=== PATIENT | female | born 1975 | race Caucasian/White ===

== ENCOUNTER 2018-08-20 05:30 | Inpatient (IN) | payer MEDICAID ==
[~2018-08-20] VITALS: Ht 171.4 cm; Wt 124.3 kg
[2018-08-20] VITALS (66 sets, daily range): BP systolic 90–185; BP diastolic 33–114
[~2018-08-20 05:30] MED LIST: ABIL10 PO; AMPH30TA3 PO; ASPI-964 PO; ATOR20TA PO; DULO60CA44 PO; GEMF600T4 PO; HYDR-4009 PO; LORA1TAB PO; METF-414 PO; MORP30TA54 PO
[2018-08-20] MEDS ORDERED: GELATIN SPONGE,ABSORBABLE 12-7MM SPONGE ONE (06:27)
[2018-08-20] MEDS ORDERED: BACITRACIN 15GM TUBE TOP ONE (06:27)
[2018-08-20 06:28] LABS: CLARITY URINE CLOUDY (CLEAR); COLOR URINE DARK YELLOW (YELLOW); KETONES URINE TRACE (NEGATIVE); LEUKOCYTE ESTERASE URINE NEGATIVE (NEGATIVE); NITRITE URINE NEGATIVE (NEGATIVE); OCCULT BLOOD URINE NEGATIVE (NEGATIVE); PH URINE 5.5 (4.5-8.0); PROTEIN URINE 1+ (NEGATIVE); SPECIFIC GRAVITY URINE 1.035 (1.005-1.030)
[2018-08-20] MEDS ORDERED: NORMAL SALINE 0.9% 10 ML SYR ONE (06:28)
[2018-08-20] MEDS ORDERED: LIDOCAINE HCL/EPINEPHRINE 1%-EPI 1:100,000 20 ML VIAL ONE (06:28)
[2018-08-20] MEDS ORDERED: THROMBIN (BOVINE) 5000 UNITS/VIAL TOP ONE ×2 (06:28→06:43)
[2018-08-20] MEDS ORDERED: BACITRACIN 50,000 UNITS/VIAL ONE (06:29)
[2018-08-20] MEDS ORDERED: INSULIN REGULAR (HUMULIN R) UD 100 UNITS/ML SYR SUBCUT NR (06:30)
[2018-08-20] MEDS ORDERED: HYDROMORPHONE HCL/PF 2MG/ML (OR) ONE (06:42)
[2018-08-20] MEDS ORDERED: FENTANYL CITRATE/PF 50MCG/ML 5ML VIAL ONE (06:42)
[2018-08-20] MEDS ORDERED: MIDAZOLAM HCL 2 MG/2 ML VIAL ONE (06:42)
[2018-08-20] MEDS ORDERED: PROPOFOL 200MG/20ML VIAL IV ONE (06:42)
[2018-08-20] MEDS ORDERED: ROCURONIUM BROMIDE 10MG/ML VIAL 5ML IV ONE ×2 (06:42→07:52)
[2018-08-20] MEDS ORDERED: PHENYLEPHRINE HCL 10 MG/ML 1ML (IV VIAL) IV ONE (06:48)
[2018-08-20 07:10] LABS: UCG SCREEN NEGATIVE
[2018-08-20] MEDS ORDERED: LIDOCAINE HCL 1% 20ML VIAL (Pyxis) INJ ONE (07:20)
[2018-08-20] MEDS ORDERED: HYDROCODONE/APAP 7.5/325MG 1 TAB TABLET PO PRN (07:30)
[2018-08-20] MEDS ORDERED: INSULIN REGULAR (HUMULIN R) 300UNITS/3ML ONE (07:31)
[2018-08-20] MEDS ORDERED: DEXTROSE 50% WATER 50ML SYRINGE IV PRN (07:45)
[2018-08-20] MEDS ORDERED: ESMOLOL HCL 10MG/ML 10ML VIAL IV ONE (07:49)
[2018-08-20] MEDS ORDERED: INSU100I24 SQ (08:03)
[2018-08-20] MEDS: SODIUM CHLORIDE 0.9% 1,000 ML IV SCH ×2 (08:06→09:42)
[2018-08-20] MEDS ORDERED: METOCLOPRAMIDE HCL 10MG/2ML VIAL ONE (08:27)
[2018-08-20] MEDS ORDERED: ONDANSETRON HCL 4MG/2ML INJ ONE (08:27)
[2018-08-20] MEDS ORDERED: GLYCOPYRROLATE 0.2 MG/ML 2ML VIAL ONE (08:46)
[2018-08-20] MEDS: NICARDIPINE 100 MG in SODIUM CHLORIDE 0.9% 60 ML IV PRN ×2 (09:43→19:47)
[2018-08-20] MEDS ORDERED: DIPHENHYDRAMINE INJ IV PRN (10:00)
[2018-08-20] MEDS ORDERED: NALOXONE INJ IV PRN (10:00)
[2018-08-20] MEDS ORDERED: ONDANSETRON INJ IV PRN (10:00)
[2018-08-20] MEDS: MORPHINE SULFATE 4 MG/ML CPJ (NOT FOR IM USE) IV PRN ×3 (10:01→21:27)
[2018-08-20] MEDS ORDERED: MORPHINE SULFATE 4 MG/ML CPJ (NOT FOR IM USE) IV NR (10:30)
[2018-08-20] MEDS: HYDROMORPHONE PCA 10MG/50ML IV PRN (10:34)
[2018-08-20] MEDS ORDERED: IPRATROPIUM/ALBUTEROL 0.5-3(2.5)MG/3ML NEB INH PRN (12:00)
[2018-08-20] MEDS: BLOOD SUGAR DIAGNOSTIC STRIP TEST SCH ×3 (12:15→21:14)
[2018-08-20 12:28] LABS: EOSINOPHILS % 0.3 % (0.0-5.0); HEMATOCRIT. 42.7 % (36.0-48.0); HEMOGLOBIN. 13.7 g/dL (12.0-16.0); MEAN CORPUSCULAR HEMOGLOBIN 27.6 pg (28.0-32.0); MEAN CORPUSCULAR VOLUME 86.1 fL (81.0-99.0); MEAN PLATELET VOLUME 9.3 fl (7.4-10.4); MONOCYTES % 2.4 % (2.0-8.0); NEUTROPHILS % 85.3 % (40.0-76.0); PLATELET 307 x1000/uL (130-400); RED BLOOD CELL COUNT 4.96 mill/uL (4.2-5.4); RED CELL DISTRIBUTION WIDTH 13.9 % (11.6-14.6)
[2018-08-20] MEDS: DEXAMETHASONE 4MG/ML 1ML VIAL IV SCH ×3 (12:31→23:28)
[2018-08-20] MEDS: INSULIN LISPRO 100 UNITS/ML SUBCUT SCH ×3 (12:32→21:19)
[2018-08-20 13:12] LABS: CHLORIDE 102 mEq/L (98-107)
[2018-08-20 13:18] LABS: PHOSPHORUS 3.8 mg/dL (2.5-4.9)
[2018-08-20 13:19] LABS: LDL CHOLESTEROL 197 mg/dL (5-100)
[2018-08-20 13:20] LABS: HDL CHOLESTEROL 29 mg/dL (40-59)
[2018-08-20] MEDS ORDERED: CEFAZOLIN SODIUM 1000MG/VIAL IV SCH (14:00)
[2018-08-20] MEDS: CEFAZOLIN 1000MG PREMIX 50 ML IV SCH ×2 (16:31→23:28)
[2018-08-20] MEDS: ARIPIPRAZOLE 10MG TABLET PO SCH (20:11)
[2018-08-20] MEDS: DULOXETINE HCL 30MG DR CAPSULE PO SCH (20:12)
[2018-08-20] MEDS: ATORVASTATIN CALCIUM 20MG TABLET PO SCH (21:20)
[2018-08-20] MEDS: INSULIN GLARGINE UD 100 UNITS/ML SYR SUBCUT SCH (21:20)
[2018-08-21] VITALS (94 sets, daily range): BP systolic 107–166; BP diastolic 32–109
[2018-08-21] MEDS: MORPHINE SULFATE 4 MG/ML CPJ (NOT FOR IM USE) IV PRN ×2 (01:34→05:40)
[2018-08-21] MEDS: SODIUM CHLORIDE 0.9% 1,000 ML IV SCH ×2 (03:54→17:03)
[2018-08-21] MEDS: BLOOD SUGAR DIAGNOSTIC STRIP TEST SCH ×4 (05:38→20:58)
[2018-08-21] MEDS: DEXAMETHASONE 4MG/ML 1ML VIAL IV SCH ×2 (05:39→12:36)
[2018-08-21 05:48] LABS: BASOPHILS % 0.4 % (0.0-2.0); HEMATOCRIT. 41.4 % (36.0-48.0); HEMOGLOBIN. 13.8 g/dL (12.0-16.0); LYMPHOCYTES % 8.2 % (20.0-50.0); MEAN CORPUSCULAR HEMOGLOBIN 28.6 pg (28.0-32.0); MEAN CORPUSCULAR VOLUME 86.1 fL (81.0-99.0); MEAN PLATELET VOLUME 9.5 fl (7.4-10.4); MONOCYTES % 2.3 % (2.0-8.0); NEUTROPHILS % 89.1 % (40.0-76.0); PLATELET 291 x1000/uL (130-400); RED BLOOD CELL COUNT 4.82 mill/uL (4.2-5.4); RED CELL DISTRIBUTION WIDTH 13.9 % (11.6-14.6)
[2018-08-21 05:53] LABS: CHLORIDE 101 mEq/L (98-107)
[2018-08-21] MEDS: CEFAZOLIN 1000MG PREMIX 50 ML IV SCH (06:11)
[2018-08-21] MEDS: INSULIN LISPRO 100 UNITS/ML SUBCUT SCH ×4 (06:11→20:58)
[2018-08-21] MEDS: NICARDIPINE 100 MG in SODIUM CHLORIDE 0.9% 60 ML IV PRN ×2 (06:26→17:03)
[2018-08-21] MEDS: INSULIN GLARGINE UD 100 UNITS/ML SYR SUBCUT SCH ×2 (11:15→22:13)
[2018-08-21] MEDS: AMLODIPINE 5MG TABLET PO SCH (12:51)
[2018-08-21] MEDS: HYDROMORPHONE PCA 10MG/50ML IV PRN (20:03)
[2018-08-21] MEDS: ARIPIPRAZOLE 10MG TABLET PO SCH (20:57)
[2018-08-21] MEDS: DULOXETINE HCL 30MG DR CAPSULE PO SCH (20:57)
[2018-08-21] MEDS: ATORVASTATIN CALCIUM 20MG TABLET PO SCH (20:57)
[2018-08-22] VITALS (58 sets, daily range): BP systolic 115–163; BP diastolic 53–104
[2018-08-22] MEDS: INSULIN LISPRO 100 UNITS/ML SUBCUT SCH ×4 (06:41→20:59)
[2018-08-22] MEDS: BLOOD SUGAR DIAGNOSTIC STRIP TEST SCH ×4 (06:42→21:02)
[2018-08-22 06:46] LABS: CHLORIDE 97 mEq/L (98-107)
[2018-08-22 06:59] LABS: HEMATOCRIT. 40.3 % (36.0-48.0); HEMOGLOBIN. 13.6 g/dL (12.0-16.0); MEAN CORPUSCULAR HEMOGLOBIN 28.6 pg (28.0-32.0); MEAN PLATELET VOLUME 9.5 fl (7.4-10.4); PLATELET 314 x1000/uL (130-400); RED BLOOD CELL COUNT 4.75 mill/uL (4.2-5.4); RED CELL DISTRIBUTION WIDTH 13.8 % (11.6-14.6)
[2018-08-22] MEDS: AMLODIPINE 5MG TABLET PO SCH (09:20)
[2018-08-22 09:40] LABS: PLATELET ESTIMATE NORMAL
[2018-08-22] MEDS: CEFTRIAXONE 1,000 MG in DEXTROSE 5% WATER 50 ML IV SCH (10:00)
[2018-08-22] MEDS: INSULIN GLARGINE UD 100 UNITS/ML SYR SUBCUT SCH ×2 (10:16→21:02)
[2018-08-22] MEDS ORDERED: CLONIDINE 0.1MG TABLET PO PRN (11:15)
[2018-08-22] MEDS: MORPHINE SULFATE 4 MG/ML CPJ (NOT FOR IM USE) IV PRN (18:17)
[2018-08-22] MEDS: ARIPIPRAZOLE 10MG TABLET PO SCH (20:55)
[2018-08-22] MEDS: ATORVASTATIN CALCIUM 20MG TABLET PO SCH (20:55)
[2018-08-22] MEDS: DULOXETINE HCL 30MG DR CAPSULE PO SCH (20:55)
[2018-08-22] MEDS ORDERED: CARVEDILOL 3.125 MG TABLET PO SCH (21:00)
[2018-08-23] VITALS: BP 153/91
[2018-08-23] MEDS: MORPHINE SULFATE 4 MG/ML CPJ (NOT FOR IM USE) IV PRN (03:52)
[2018-08-23 04:00] VITALS: BP 153/93
[2018-08-23] MEDS: BLOOD SUGAR DIAGNOSTIC STRIP TEST SCH ×4 (06:29→21:20)
[2018-08-23] MEDS: INSULIN LISPRO 100 UNITS/ML SUBCUT SCH ×4 (06:29→21:21)
[2018-08-23 07:58] LABS: BASOPHILS % 0.3 % (0.0-2.0); HEMATOCRIT. 41.1 % (36.0-48.0); HEMOGLOBIN. 13.6 g/dL (12.0-16.0); LYMPHOCYTES % 16.6 % (20.0-50.0); MEAN CORPUSCULAR HEMOGLOBIN 27.9 pg (28.0-32.0); MEAN CORPUSCULAR VOLUME 84.1 fL (81.0-99.0); MEAN PLATELET VOLUME 8.8 fl (7.4-10.4); MONOCYTES % 6.5 % (2.0-8.0); NEUTROPHILS % 76.6 % (40.0-76.0); PLATELET 295 x1000/uL (130-400); RED BLOOD CELL COUNT 4.89 mill/uL (4.2-5.4); RED CELL DISTRIBUTION WIDTH 13.5 % (11.6-14.6)
[2018-08-23 08:00] VITALS: BP 166/117
[2018-08-23 08:14] LABS: CHLORIDE 96 mEq/L (98-107)
[2018-08-23] MEDS: AMLODIPINE 10MG TABLET PO SCH (08:58)
[2018-08-23] MEDS: CARVEDILOL 6.25 MG TABLET PO SCH ×2 (08:58→21:20)
[2018-08-23] MEDS: LORAZEPAM 1MG TABLET PO SCH (09:52)
[2018-08-23] MEDS: INSULIN GLARGINE UD 100 UNITS/ML SYR SUBCUT SCH ×2 (09:54→21:22)
[2018-08-23] MEDS: CEFTRIAXONE 1,000 MG in DEXTROSE 5% WATER 50 ML IV SCH (11:31)
[2018-08-23 12:00] VITALS: BP 145/75
[2018-08-23 16:00] VITALS: BP 112/71
[2018-08-23 20:44] VITALS: BP 117/51
[2018-08-23] MEDS: DULOXETINE HCL 30MG DR CAPSULE PO SCH (21:19)
[2018-08-23] MEDS: ARIPIPRAZOLE 10MG TABLET PO SCH (21:20)
[2018-08-23] MEDS: ATORVASTATIN CALCIUM 20MG TABLET PO SCH (21:20)
[2018-08-24 00:53] VITALS: BP 145/72
[2018-08-24 04:00] VITALS: BP 176/76
[2018-08-24] MEDS: BLOOD SUGAR DIAGNOSTIC STRIP TEST SCH ×2 (06:30→11:57)
[2018-08-24] MEDS: INSULIN LISPRO 100 UNITS/ML SUBCUT SCH ×2 (06:42→12:58)
[2018-08-24 07:03] LABS: CHLORIDE 99 mEq/L (98-107)
[2018-08-24 07:17] LABS: BASOPHILS % 0.3 % (0.0-2.0); EOSINOPHILS % 0.5 % (0.0-5.0); HEMATOCRIT. 41.4 % (36.0-48.0); HEMOGLOBIN. 13.6 g/dL (12.0-16.0); LYMPHOCYTES % 34.1 % (20.0-50.0); MEAN CORPUSCULAR HEMOGLOBIN 28.2 pg (28.0-32.0); MEAN CORPUSCULAR VOLUME 85.5 fL (81.0-99.0); MEAN PLATELET VOLUME 8.9 fl (7.4-10.4); MONOCYTES % 7.4 % (2.0-8.0); NEUTROPHILS % 57.7 % (40.0-76.0); PLATELET 293 x1000/uL (130-400); RED BLOOD CELL COUNT 4.84 mill/uL (4.2-5.4); RED CELL DISTRIBUTION WIDTH 13.7 % (11.6-14.6)
[2018-08-24 08:00] VITALS: BP 138/79
[2018-08-24] MEDS: CEFTRIAXONE 1,000 MG in DEXTROSE 5% WATER 50 ML IV SCH (09:08)
[2018-08-24] MEDS: LORAZEPAM 1MG TABLET PO SCH (09:08)
[2018-08-24] MEDS: AMLODIPINE 10MG TABLET PO SCH (09:09)
[2018-08-24] MEDS: CARVEDILOL 6.25 MG TABLET PO SCH (09:09)
[2018-08-24] MEDS: INSULIN GLARGINE UD 100 UNITS/ML SYR SUBCUT SCH (09:10)
[2018-08-24 12:00] VITALS: BP 103/42
[2018-08-24 12:18] VITALS: BP 103/42
[2018-08-24] MEDS ORDERED: COR6 PO (12:38)
[2018-08-24] MEDS ORDERED: AMLO10TA80 PO (12:38)
== END 2018-08-24 13:10 | disposition home or self-care (01) | DRG 710 ==
LOC: OR 05:30 → MICUNO 05:31 → 5WST 08-22 17:10
PROVIDERS: ADMIT Internal Medicine; ATTEND Internal Medicine
PROC: 0RG20A0 Fusion of 2 or more Cervical Vertebral Joints with Interbody Fusion Device, Anterior Approach, Anterior Column, Open Approach (ICD-10-PCS; principal; 2018-08-23)
PROC: 0RB30ZZ Excision of Cervical Vertebral Disc, Open Approach (ICD-10-PCS; 2018-08-23)
PROC: 4A11X4G Monitoring of Peripheral Nervous Electrical Activity, Intraoperative, External Approach (ICD-10-PCS; 2018-08-23)
DX: A41.9 Sepsis, unspecified organism (principal); G82.50 Quadriplegia, unspecified; M47.12 Other spondylosis with myelopathy, cervical region; G95.29 Other cord compression; E11.65 Type 2 diabetes mellitus with hyperglycemia; M48.02 Spinal stenosis, cervical region; Z68.41 Body mass index [BMI] 40.0-44.9, adult; I10 Essential (primary) hypertension; I16.0 Hypertensive urgency; N39.0 Urinary tract infection, site not specified; E66.9 Obesity, unspecified; M47.22 Other spondylosis with radiculopathy, cervical region; Z60.2 Problems related to living alone; E78.5 Hyperlipidemia, unspecified; K21.9 Gastro-esophageal reflux disease without esophagitis; Z79.4 Long term (current) use of insulin; Z98.51 Tubal ligation status; Z79.82 Long term (current) use of aspirin; Z79.899 Other long term (current) drug therapy; Z87.891 Personal history of nicotine dependence
CPT/HCPCS: 36415; 71045; 72040; 72141; 76000; 80048; 80061; 81025; 82962; 83036; 83735; 84100; 84443; 86850; 86900; 88304; 88311; 95925; 95926; 95928; 95929; 97162; 97166; 97535; C1713; J0690; J0696; J1100; J1170; J1815; J2250; J2270; J2370; J2405; J2704; J2765; J3010; J3490; J7030; J7050; J7060; L0172